=== PATIENT | male | born 1940 | race Caucasian/White ===

== ENCOUNTER 2018-02-19 13:34 | Inpatient (IN) | payer MEDICARE ==
[~2018-02-19] VITALS: Ht 160 cm; Wt 72.6 kg
[~2018-02-19 13:34] MED LIST: GABA300C10 PO; HYDR-3240 PO; LISI1TAB7 PO; NAPR-856 PO
[2018-02-19] MEDS ORDERED: ACETAMINOPHEN 500 MG TABLET PO ONE (15:30)
[2018-02-19] MEDS ORDERED: ONDANSETRON ODT 8 MG PO ONE (15:30)
[2018-02-19 16:21] LABS: BASOPHILS # (AUTO) 0.01 x10^3/uL (0-0.1); BASOPHILS % (AUTO) 0 % (0-1); EOSINOPHILS % (AUTO) 0 % (1-7); LYMPHOCYTES # (AUTO) 1.43 x10^3/uL (1-3.4); LYMPHOCYTES % (AUTO) 12 % (22-44); MD NO; MEAN CORPUSCULAR HEMOGLOBIN 33.3 pg (27.5-34.5); MEAN CORPUSCULAR HGB CONC 33.4 g/dL (33.2-36.2); MEAN CORPUSCULAR VOLUME 99.9 fL (81-97); MEAN PLATELET VOLUME 8.1 fL (7.4-10.4); MONOCYTES # (AUTO) 0.94 x10^3/uL (0.2-0.8); MONOCYTES % (AUTO) 8 % (2-9); NEUTROPHILS # (AUTO) 10.08 x10^3/uL (1.8-6.8); NEUTROPHILS % (AUTO) 81 % (42-75); PLATELET COUNT 225 x10^3/uL (130-400); RED BLOOD COUNT 3.32 x10^6/uL (4.38-5.82); RED CELL DISTRIBUTION WIDTH 15.1 % (9.4-14.8)
[2018-02-19 16:26] LABS: ALANINE AMINOTRANSFERASE 11 U/L (12-78); ALBUMIN 3.3 g/dL (3.4-5.0); CALCIUM 9.2 mg/dL (8.5-10.1)
[2018-02-19 16:28] LABS: BILIRUBIN,TOTAL 0.8 mg/dL (0.2-1.0); CREATININE 1.22 mg/dL (0.7-1.3); TOTAL PROTEIN 7.9 g/dL (6.4-8.2)
[2018-02-19 16:29] LABS: ANION GAP 10 mmol/L (5-15); CHLORIDE 110 mmol/L (98-107)
[2018-02-19 16:31] LABS: ALKALINE PHOSPHATASE 56 U/L (45-117)
[2018-02-19] MEDS: LACTATED RINGERS 1,000 ML IV SCH ×2 (16:39→19:41)
[2018-02-19 18:05] VITALS: BP 114/66
[2018-02-19 18:36] VITALS: BP 106/59
[2018-02-19] MEDS ORDERED: GABAPENTIN 300 MG CAPSULE PO PRN (19:00)
[2018-02-19] MEDS ORDERED: D5%-0.9% NACL 1,000 ML IV SCH (19:00)
[2018-02-19] MEDS ORDERED: hydrALAzine 20 MG/ML, 1ML IVPush PRN (19:00)
[2018-02-19] MEDS ORDERED: ONDANSETRON 2MG/ML, 2ML IVPush PRN (19:00)
[2018-02-19] MEDS ORDERED: ACETAMINOPHEN 325 MG TABLET PO PRN (19:00)
[2018-02-19] MEDS ORDERED: GUAIFENESIN/COD200MG-20MG/10ML LIQUID PO PRN (19:00)
[2018-02-19] MEDS ORDERED: CYCLOBENZAPRINE 10 MG TABLET PO PRN (19:00)
[2018-02-19 20:06] LABS: HCT (SEDRATE) 33.2 % (39.2-51.8)
[2018-02-19] MEDS: ENOXAPARIN 100 MG/ML SQ SCH (20:22)
[2018-02-19] MEDS: morphine SULFATE 10 MG/ML, 1ML IVPush PRN (20:49)
[2018-02-20 01:15] VITALS: BP 116/60
[2018-02-20 03:19] LABS: MICROSCOPIC AUTO
[2018-02-20 03:21] LABS: CULTURE INDICATED? YES
[2018-02-20 05:49] LABS: BASOPHILS # (AUTO) 0.02 x10^3/uL (0-0.1); BASOPHILS % (AUTO) 0 % (0-1); EOSINOPHILS % (AUTO) 0 % (1-7); LYMPHOCYTES # (AUTO) 1.62 x10^3/uL (1-3.4); LYMPHOCYTES % (AUTO) 15 % (22-44); MD NO; MEAN CORPUSCULAR HEMOGLOBIN 33.5 pg (27.5-34.5); MEAN CORPUSCULAR HGB CONC 33.4 g/dL (33.2-36.2); MEAN PLATELET VOLUME 8.5 fL (7.4-10.4); MONOCYTES # (AUTO) 0.96 x10^3/uL (0.2-0.8); MONOCYTES % (AUTO) 9 % (2-9); NEUTROPHILS # (AUTO) 8.27 x10^3/uL (1.8-6.8); NEUTROPHILS % (AUTO) 76 % (42-75); PLATELET COUNT 213 x10^3/uL (130-400); RED BLOOD COUNT 2.99 x10^6/uL (4.38-5.82); RED CELL DISTRIBUTION WIDTH 15.2 % (9.4-14.8)
[2018-02-20 05:54] LABS: CALCIUM 8.9 mg/dL (8.5-10.1); CHLORIDE 109 mmol/L (98-107)
[2018-02-20 05:57] LABS: ANION GAP 7 mmol/L (5-15)
[2018-02-20 06:38] VITALS: BP 123/73
[2018-02-20] MEDS ORDERED: CEFTRIAXONE PMX 1GM/50ML 50 ML IV SCH (07:00)
[2018-02-20] MEDS: ENOXAPARIN 100 MG/ML SQ SCH (08:39)
[2018-02-20] MEDS: HYDROCHLOROTHIAZIDE 25 MG TABLET PO SCH (08:40)
[2018-02-20] MEDS: LISINOPRIL 20 MG TABLET PO SCH (08:40)
[2018-02-20 10:36] LABS: MICROSCOPIC INDICATED
[2018-02-20 10:39] LABS: CULTURE INDICATED? YES
[2018-02-20] MEDS: LACTATED RINGERS 1,000 ML IV SCH ×2 (11:35→20:50)
[2018-02-20 12:57] VITALS: BP 118/68
[2018-02-20] MEDS ORDERED: VANCOMYCIN PER PHARMACY MC PRN (13:00)
[2018-02-20 13:15] LABS: THYROID STIMULATING HORMONE 0.825 mIU/L (0.358-3.740)
[2018-02-20 13:17] LABS: FOLATE LEVEL > 20.0 ng/mL (3.1-17.5)
[2018-02-20] MEDS: morphine SULFATE 10 MG/ML, 1ML IVPush PRN (13:26)
[2018-02-20] MEDS ORDERED: PHARMACOKINETIC MONITORING MC PRN (13:30)
[2018-02-20] MEDS ORDERED: PIPERACILLIN/TAZO/PMX 3.375GM 50 ML IV SCH (14:00)
[2018-02-20] MEDS: VANCOMYCIN 1,800 MG in SODIUM CHLORIDE 0.9% 250 ML IV SCH (14:36)
[2018-02-20 16:37] LABS: INTERNATIONAL NORMALIZED RATIO 1.23 (0.93-1.1)
[2018-02-20 16:56] LABS: PROTHROMBIN TIME 12.9 Seconds (9.6-11.5)
[2018-02-20 18:35] VITALS: BP 119/71
[2018-02-21 00:57] VITALS: BP 113/67
[2018-02-21 05:47] LABS: BASOPHILS # (AUTO) 0.01 x10^3/uL (0-0.1); BASOPHILS % (AUTO) 0 % (0-1); EOSINOPHILS # (AUTO) 0.01 x10^3/uL (0-0.4); EOSINOPHILS % (AUTO) 0 % (1-7); LYMPHOCYTES % (AUTO) 13 % (22-44); MD NO; MEAN CORPUSCULAR HEMOGLOBIN 33.1 pg (27.5-34.5); MEAN CORPUSCULAR HGB CONC 33.4 g/dL (33.2-36.2); MEAN CORPUSCULAR VOLUME 99.4 fL (81-97); MEAN PLATELET VOLUME 7.8 fL (7.4-10.4); MONOCYTES # (AUTO) 0.68 x10^3/uL (0.2-0.8); MONOCYTES % (AUTO) 7 % (2-9); NEUTROPHILS # (AUTO) 7.37 x10^3/uL (1.8-6.8); NEUTROPHILS % (AUTO) 80 % (42-75); PLATELET COUNT 205 x10^3/uL (130-400); RED BLOOD COUNT 2.84 x10^6/uL (4.38-5.82)
[2018-02-21 05:57] LABS: ALBUMIN 2.3 g/dL (3.4-5.0); ANION GAP 9 mmol/L (5-15); CALCIUM 8.5 mg/dL (8.5-10.1); CHLORIDE 108 mmol/L (98-107); CREATININE 0.94 mg/dL (0.7-1.3)
[2018-02-21 06:23] VITALS: BP 114/68
[2018-02-21] MEDS: HYDROCHLOROTHIAZIDE 25 MG TABLET PO SCH (07:40)
[2018-02-21] MEDS: LISINOPRIL 20 MG TABLET PO SCH (08:03)
[2018-02-21] MEDS: LACTATED RINGERS 1,000 ML IV SCH ×2 (08:03→16:42)
[2018-02-21] MEDS: PANTOPRAZOLE 40 MG IV IVPush SCH (12:40)
[2018-02-21] MEDS: CYANOCOBALAMIN 1,000 MCG TABLET PO SCH (12:40)
[2018-02-21 13:13] VITALS: BP 116/67
[2018-02-21] MEDS: VANCOMYCIN 1,800 MG in SODIUM CHLORIDE 0.9% 250 ML IV SCH (14:19)
[2018-02-21] MEDS: morphine SULFATE 10 MG/ML, 1ML IVPush PRN (14:27)
[2018-02-21 18:28] VITALS: BP 118/65
[2018-02-21] MEDS: CEFTAROLINE 600 MG in SODIUM CHLORIDE 0.9% 100 ML IV SCH (18:32)
[2018-02-22 00:08] VITALS: BP 124/68
[2018-02-22] MEDS: LACTATED RINGERS 1,000 ML IV SCH ×3 (04:44→20:00)
[2018-02-22 05:47] LABS: BASOPHILS # (AUTO) 0.01 x10^3/uL (0-0.1); BASOPHILS % (AUTO) 0 % (0-1); EOSINOPHILS # (AUTO) 0.05 x10^3/uL (0-0.4); EOSINOPHILS % (AUTO) 1 % (1-7); LYMPHOCYTES # (AUTO) 1.35 x10^3/uL (1-3.4); LYMPHOCYTES % (AUTO) 15 % (22-44); MD NO; MEAN CORPUSCULAR HEMOGLOBIN 33.6 pg (27.5-34.5); MEAN CORPUSCULAR HGB CONC 33.9 g/dL (33.2-36.2); MEAN CORPUSCULAR VOLUME 99.3 fL (81-97); MEAN PLATELET VOLUME 8.1 fL (7.4-10.4); MONOCYTES # (AUTO) 0.55 x10^3/uL (0.2-0.8); MONOCYTES % (AUTO) 6 % (2-9); NEUTROPHILS # (AUTO) 7.29 x10^3/uL (1.8-6.8); NEUTROPHILS % (AUTO) 79 % (42-75); PLATELET COUNT 198 x10^3/uL (130-400); RED BLOOD COUNT 2.63 x10^6/uL (4.38-5.82); RED CELL DISTRIBUTION WIDTH 14.9 % (9.4-14.8)
[2018-02-22 05:51] LABS: INTERNATIONAL NORMALIZED RATIO 1.24 (0.93-1.1)
[2018-02-22 05:56] LABS: ALBUMIN 1.9 g/dL (3.4-5.0); ANION GAP 7 mmol/L (5-15); CALCIUM 8.3 mg/dL (8.5-10.1); CHLORIDE 109 mmol/L (98-107); CREATININE 0.79 mg/dL (0.7-1.3)
[2018-02-22] MEDS: CEFTAROLINE 600 MG in SODIUM CHLORIDE 0.9% 100 ML IV SCH (06:17)
[2018-02-22 07:07] VITALS: BP 110/68
[2018-02-22] MEDS ORDERED: BACITRACIN OINT 500U/GM, 15 GM ONE (07:09)
[2018-02-22] MEDS ORDERED: THROMBIN 5,000 UNIT VIAL TP ONE (07:09)
[2018-02-22] MEDS ORDERED: BACITRACIN 50,000 UNIT ONE (07:09)
[2018-02-22] MEDS ORDERED: BUPIVACAINE/PF-EPI 0.5% 1:200K ONE (07:09)
[2018-02-22] MEDS ORDERED: MIDAZOLAM 1 MG/ML, 2ML ONE (08:03)
[2018-02-22] MEDS ORDERED: FENTANYL PF 250 MCG/5ML ONE (08:03)
[2018-02-22] MEDS ORDERED: VANCOMYCIN 1,000 MG ONE (08:04)
[2018-02-22] MEDS ORDERED: BUPIVACAINE/PF-EPI 0.25% 1:200K ONE (08:04)
[2018-02-22] MEDS: HYDROCHLOROTHIAZIDE 25 MG TABLET PO SCH (08:30)
[2018-02-22] MEDS: PANTOPRAZOLE 40 MG IV IVPush SCH (08:30)
[2018-02-22] MEDS: CYANOCOBALAMIN 1,000 MCG TABLET PO SCH (08:31)
[2018-02-22] MEDS: LISINOPRIL 20 MG TABLET PO SCH (08:31)
[2018-02-22] MEDS ORDERED: PROPOFOL 10 MG/ML, 20ML ONE (09:25)
[2018-02-22] MEDS ORDERED: SUCCINYLCHOLINE 20 MG/ML, 10ML ONE (09:25)
[2018-02-22] MEDS ORDERED: ONDANSETRON 2MG/ML, 2ML ONE (09:25)
[2018-02-22] MEDS ORDERED: CEFAZOLIN 1,000 MG ONE (09:25)
[2018-02-22] MEDS ORDERED: NEOSTIGMINE 1 MG/ML, 10ML ONE (09:25)
[2018-02-22] MEDS ORDERED: DEXAMETHASONE 4 MG/ML, 1ML ONE (09:25)
[2018-02-22] MEDS ORDERED: GLYCOPYRROLATE 0.2MG/1ML, 5ML ONE (09:25)
[2018-02-22] MEDS ORDERED: hydrALAzine 20 MG/ML, 1ML IV PRN (09:30)
[2018-02-22] MEDS ORDERED: OXYcodone 5 MG/5 ML ORAL.SOL UDC PO PRN (09:30)
[2018-02-22] MEDS ORDERED: ONDANSETRON 2MG/ML, 2ML IV PRN (09:30)
[2018-02-22] MEDS ORDERED: LABETALOL 5MG/ML, 20ML IV PRN (09:30)
[2018-02-22] MEDS ORDERED: HYDROmorphone 1 MG/ML, 1ML IV PRN (09:30)
[2018-02-22] MEDS ORDERED: PROMETHAZINE 12.5 MG SUPP PR PRN (09:30)
[2018-02-22] MEDS ORDERED: FENTANYL PF 100 MCG/2ML IV PRN (09:30)
[2018-02-22] MEDS ORDERED: ONDANSETRON ODT 8 MG PO PRN (09:30)
[2018-02-22] MEDS ORDERED: OXYcodone 5 MG/5 ML ORAL.SOL UDC ONE (09:59)
[2018-02-22] MEDS ORDERED: FENTANYL PF 100 MCG/2ML ONE (09:59)
[2018-02-22] MEDS ORDERED: MEPERIDINE/PF 50 MG/ML IM PRN (11:30)
[2018-02-22] MEDS: CIPROFLOXACIN 750 MG TABLET PO SCH ×2 (12:30→21:00)
[2018-02-22] MEDS ORDERED: CEFAZOLIN 1,000 MG IM SCH (12:30)
[2018-02-22] MEDS ORDERED: CIPROFLOXACIN 500 MG TABLET ONE (13:03)
[2018-02-22 14:40] VITALS: BP 113/68
[2018-02-22] MEDS: NS + 20MEQ KCL 1,000 ML IV SCH (16:45)
[2018-02-22] MEDS: CEFAZOLIN 2,000 MG in SODIUM CHLORIDE 0.9% 50 ML IVPB SCH (16:45)
[2018-02-22] MEDS: OXYcodone/APAP 10/325MG TABLET PO PRN (16:51)
[2018-02-22 19:46] VITALS: BP 101/61
[2018-02-23 00:18] VITALS: BP 115/74
[2018-02-23] MEDS: CEFAZOLIN 2,000 MG in SODIUM CHLORIDE 0.9% 50 ML IVPB SCH ×3 (00:50→16:45)
[2018-02-23] MEDS: LACTATED RINGERS 1,000 ML IV SCH ×2 (03:37→15:18)
[2018-02-23 04:22] VITALS: BP 100/60
[2018-02-23] MEDS: NS + 20MEQ KCL 1,000 ML IV SCH ×2 (05:02→21:59)
[2018-02-23 05:09] LABS: BASOPHILS # (AUTO) 0.02 x10^3/uL (0-0.1); BASOPHILS % (AUTO) 0 % (0-1); EOSINOPHILS # (AUTO) 0.12 x10^3/uL (0-0.4); EOSINOPHILS % (AUTO) 1 % (1-7); LYMPHOCYTES # (AUTO) 1.11 x10^3/uL (1-3.4); LYMPHOCYTES % (AUTO) 13 % (22-44); MD NO; MEAN CORPUSCULAR HEMOGLOBIN 33.3 pg (27.5-34.5); MEAN CORPUSCULAR HGB CONC 33.5 g/dL (33.2-36.2); MEAN CORPUSCULAR VOLUME 99.4 fL (81-97); MEAN PLATELET VOLUME 7.9 fL (7.4-10.4); MONOCYTES # (AUTO) 0.45 x10^3/uL (0.2-0.8); MONOCYTES % (AUTO) 5 % (2-9); NEUTROPHILS # (AUTO) 7.07 x10^3/uL (1.8-6.8); NEUTROPHILS % (AUTO) 81 % (42-75); PLATELET COUNT 196 x10^3/uL (130-400); RED BLOOD COUNT 2.57 x10^6/uL (4.38-5.82); RED CELL DISTRIBUTION WIDTH 14.8 % (9.4-14.8)
[2018-02-23 05:19] LABS: ALBUMIN 1.9 g/dL (3.4-5.0); ANION GAP 8 mmol/L (5-15); CHLORIDE 106 mmol/L (98-107); CREATININE 0.77 mg/dL (0.7-1.3)
[2018-02-23 06:24] VITALS: BP 105/56
[2018-02-23] MEDS: OXYcodone/APAP 10/325MG TABLET PO PRN (07:54)
[2018-02-23] MEDS: HYDROCHLOROTHIAZIDE 25 MG TABLET PO SCH (09:00)
[2018-02-23] MEDS: CYANOCOBALAMIN 1,000 MCG TABLET PO SCH (09:07)
[2018-02-23] MEDS: LISINOPRIL 20 MG TABLET PO SCH (09:07)
[2018-02-23] MEDS: PANTOPRAZOLE 40 MG IV IVPush SCH (09:07)
[2018-02-23] MEDS: CIPROFLOXACIN 750 MG TABLET PO SCH ×2 (09:07→21:00)
[2018-02-23 11:55] VITALS: BP 94/59
[2018-02-23] MEDS ORDERED: OMNIPAQUE 350 MG/ML, 100ML BOTTLE ONE (11:57)
[2018-02-23 12:38] VITALS: BP 94/59
[2018-02-23] MEDS ORDERED: LIDOCAINE-MPF 1%, 5ML ONE (14:23)
[2018-02-23] MEDS ORDERED: NALOXONE 1 MG/ML, 2ML ONE (14:43)
[2018-02-23] MEDS ORDERED: FENTANYL PF 100 MCG/2ML ONE (14:43)
[2018-02-23 18:31] VITALS: BP 106/66
[2018-02-24] MEDS: CEFAZOLIN 2,000 MG in SODIUM CHLORIDE 0.9% 50 ML IVPB SCH ×3 (00:27→16:38)
[2018-02-24] MEDS: LACTATED RINGERS 1,000 ML IV SCH (00:30)
[2018-02-24 01:56] VITALS: BP 122/67
[2018-02-24 05:44] LABS: BASOPHILS # (AUTO) 0.02 x10^3/uL (0-0.1); BASOPHILS % (AUTO) 0 % (0-1); EOSINOPHILS # (AUTO) 0.14 x10^3/uL (0-0.4); EOSINOPHILS % (AUTO) 2 % (1-7); LYMPHOCYTES # (AUTO) 1.09 x10^3/uL (1-3.4); LYMPHOCYTES % (AUTO) 15 % (22-44); MD NO; MEAN CORPUSCULAR HEMOGLOBIN 33.7 pg (27.5-34.5); MEAN CORPUSCULAR HGB CONC 34.1 g/dL (33.2-36.2); MEAN CORPUSCULAR VOLUME 98.8 fL (81-97); MEAN PLATELET VOLUME 7.9 fL (7.4-10.4); MONOCYTES % (AUTO) 6 % (2-9); NEUTROPHILS # (AUTO) 5.59 x10^3/uL (1.8-6.8); NEUTROPHILS % (AUTO) 77 % (42-75); PLATELET COUNT 213 x10^3/uL (130-400); RED BLOOD COUNT 2.45 x10^6/uL (4.38-5.82); RED CELL DISTRIBUTION WIDTH 14.8 % (9.4-14.8)
[2018-02-24 05:54] LABS: CHLORIDE 108 mmol/L (98-107)
[2018-02-24 06:01] LABS: ALANINE AMINOTRANSFERASE 31 U/L (12-78); ALBUMIN 1.9 g/dL (3.4-5.0); ALKALINE PHOSPHATASE 83 U/L (45-117); ANION GAP 8 mmol/L (5-15); BILIRUBIN,TOTAL 0.4 mg/dL (0.2-1.0); CALCIUM 8.3 mg/dL (8.5-10.1); CREATININE 0.78 mg/dL (0.7-1.3); TOTAL PROTEIN 5.8 g/dL (6.4-8.2)
[2018-02-24 06:33] VITALS: BP 149/70
[2018-02-24] MEDS ORDERED: CYANOCOBALAMIN 1,000 MCG/ML, 1ML IM ONE (07:30)
[2018-02-24] MEDS: FOLIC ACID 1 MG TABLET PO SCH (08:17)
[2018-02-24] MEDS: THIAMINE 100MG TABLET PO SCH (08:17)
[2018-02-24] MEDS: CIPROFLOXACIN 750 MG TABLET PO SCH ×2 (08:18→19:49)
[2018-02-24] MEDS: LISINOPRIL 20 MG TABLET PO SCH (08:18)
[2018-02-24] MEDS: PANTOPRAZOLE 40 MG IV IVPush SCH (08:19)
[2018-02-24] MEDS: HYDROCHLOROTHIAZIDE 25 MG TABLET PO SCH (09:00)
[2018-02-24] MEDS: CYANOCOBALAMIN 1,000 MCG TABLET PO SCH (09:00)
[2018-02-24 12:55] VITALS: BP 125/72
[2018-02-24] MEDS: DOCUSATE 100 MG CAPSULE PO PRN (19:50)
[2018-02-24] MEDS: OXYcodone/APAP 10/325MG TABLET PO PRN (19:56)
[2018-02-24 20:56] VITALS: BP 129/71
[2018-02-25] MEDS: CEFAZOLIN 2,000 MG in SODIUM CHLORIDE 0.9% 50 ML IVPB SCH ×3 (00:29→16:57)
[2018-02-25] MEDS ORDERED: CEFAZOLIN 2,000 MG in DEXTROSE 5% 50 ML IVPB SCH (00:30)
[2018-02-25 00:54] VITALS: BP 128/71
[2018-02-25 03:39] VITALS: BP 128/72
[2018-02-25 06:57] VITALS: BP 116/64
[2018-02-25] MEDS ORDERED: SENNA/DOCUSATE TABLET PO PRN (07:30)
[2018-02-25] MEDS ORDERED: MAGNESIUM HYDROXIDE 8%, 30ML UDC ONE (07:32)
[2018-02-25] MEDS: PANTOPROZOLE 40MG TABLET PO SCH (07:33)
[2018-02-25] MEDS: HYDROCHLOROTHIAZIDE 25 MG TABLET PO SCH (07:33)
[2018-02-25] MEDS: CIPROFLOXACIN 750 MG TABLET PO SCH (07:34)
[2018-02-25] MEDS: CYANOCOBALAMIN 1,000 MCG TABLET PO SCH (07:34)
[2018-02-25] MEDS: THIAMINE 100MG TABLET PO SCH (07:34)
[2018-02-25] MEDS: LISINOPRIL 20 MG TABLET PO SCH (07:35)
[2018-02-25] MEDS: FOLIC ACID 1 MG TABLET PO SCH (07:36)
[2018-02-25] MEDS ORDERED: MAGNESIUM HYDROXIDE 8%, 30ML UDC PO PRN (07:38)
[2018-02-25 08:05] LABS: BASOPHILS % (AUTO) 0 % (0-1); EOSINOPHILS # (AUTO) 0.12 x10^3/uL (0-0.4); EOSINOPHILS % (AUTO) 2 % (1-7); LYMPHOCYTES # (AUTO) 1.09 x10^3/uL (1-3.4); LYMPHOCYTES % (AUTO) 17 % (22-44); MD NO; MEAN CORPUSCULAR HEMOGLOBIN 32.4 pg (27.5-34.5); MEAN CORPUSCULAR HGB CONC 32.8 g/dL (33.2-36.2); MEAN CORPUSCULAR VOLUME 98.7 fL (81-97); MEAN PLATELET VOLUME 7.2 fL (7.4-10.4); MONOCYTES # (AUTO) 0.39 x10^3/uL (0.2-0.8); MONOCYTES % (AUTO) 6 % (2-9); NEUTROPHILS # (AUTO) 4.82 x10^3/uL (1.8-6.8); NEUTROPHILS % (AUTO) 75 % (42-75); PLATELET COUNT 285 x10^3/uL (130-400); RED BLOOD COUNT 2.76 x10^6/uL (4.38-5.82); RED CELL DISTRIBUTION WIDTH 15.2 % (9.4-14.8)
[2018-02-25 08:07] LABS: ALANINE AMINOTRANSFERASE 24 U/L (12-78); ALBUMIN 2.2 g/dL (3.4-5.0); ANION GAP 11 mmol/L (5-15); CALCIUM 8.9 mg/dL (8.5-10.1); CHLORIDE 107 mmol/L (98-107); CREATININE 0.74 mg/dL (0.7-1.3)
[2018-02-25 08:10] LABS: ALKALINE PHOSPHATASE 88 U/L (45-117); BILIRUBIN,TOTAL 0.5 mg/dL (0.2-1.0); TOTAL PROTEIN 6.3 g/dL (6.4-8.2)
[2018-02-25] MEDS ORDERED: MAGNESIUM HYDROXIDE 8%, 30ML UDC PO SCH (09:00)
[2018-02-25] MEDS: SULFAMETH./TRIMETHOPRIM DS 800MG/160MG TABLET PO SCH ×2 (12:06→20:12)
[2018-02-25 14:08] VITALS: BP 115/71
[2018-02-25 19:50] VITALS: BP 141/74
[2018-02-25] MEDS: DOCUSATE 100 MG CAPSULE PO PRN (20:12)
[2018-02-26] MEDS: CEFAZOLIN 2,000 MG in SODIUM CHLORIDE 0.9% 50 ML IVPB SCH ×3 (00:32→17:50)
[2018-02-26 02:07] VITALS: BP 137/78
[2018-02-26 05:35] LABS: BASOPHILS # (AUTO) 0.01 x10^3/uL (0-0.1); BASOPHILS % (AUTO) 0 % (0-1); EOSINOPHILS # (AUTO) 0.12 x10^3/uL (0-0.4); EOSINOPHILS % (AUTO) 2 % (1-7); LYMPHOCYTES # (AUTO) 1.53 x10^3/uL (1-3.4); LYMPHOCYTES % (AUTO) 24 % (22-44); MD NO; MEAN CORPUSCULAR HEMOGLOBIN 33.5 pg (27.5-34.5); MEAN CORPUSCULAR HGB CONC 34.2 g/dL (33.2-36.2); MEAN CORPUSCULAR VOLUME 98.1 fL (81-97); MEAN PLATELET VOLUME 7.1 fL (7.4-10.4); MONOCYTES # (AUTO) 0.48 x10^3/uL (0.2-0.8); MONOCYTES % (AUTO) 8 % (2-9); NEUTROPHILS # (AUTO) 4.29 x10^3/uL (1.8-6.8); NEUTROPHILS % (AUTO) 67 % (42-75); PLATELET COUNT 348 x10^3/uL (130-400); RED BLOOD COUNT 2.76 x10^6/uL (4.38-5.82); RED CELL DISTRIBUTION WIDTH 15.2 % (9.4-14.8)
[2018-02-26 05:41] LABS: ANION GAP 11 mmol/L (5-15); CALCIUM 8.7 mg/dL (8.5-10.1); CHLORIDE 104 mmol/L (98-107)
[2018-02-26 05:44] LABS: ALANINE AMINOTRANSFERASE 21 U/L (12-78); ALKALINE PHOSPHATASE 89 U/L (45-117); BILIRUBIN,TOTAL 0.4 mg/dL (0.2-1.0); CREATININE 0.78 mg/dL (0.7-1.3); TOTAL PROTEIN 6.5 g/dL (6.4-8.2)
[2018-02-26 07:47] VITALS: BP 144/76
[2018-02-26] MEDS: THIAMINE 100MG TABLET PO SCH (07:51)
[2018-02-26] MEDS: SULFAMETH./TRIMETHOPRIM DS 800MG/160MG TABLET PO SCH ×2 (07:51→21:10)
[2018-02-26] MEDS: LISINOPRIL 20 MG TABLET PO SCH (07:51)
[2018-02-26] MEDS: PANTOPROZOLE 40MG TABLET PO SCH (07:51)
[2018-02-26 07:52] VITALS: BP 126/81
[2018-02-26] MEDS: HYDROCHLOROTHIAZIDE 25 MG TABLET PO SCH (07:52)
[2018-02-26] MEDS: CYANOCOBALAMIN 1,000 MCG TABLET PO SCH (07:52)
[2018-02-26] MEDS: FOLIC ACID 1 MG TABLET PO SCH (07:52)
[2018-02-26] MEDS ORDERED: BISACODYL 10 MG SUPP PR PRN (08:00)
[2018-02-26] MEDS: OXYcodone/APAP 10/325MG TABLET PO PRN ×2 (11:54→20:21)
[2018-02-26] MEDS: CYCLOBENZAPRINE 10 MG TABLET PO PRN ×2 (12:39→21:10)
[2018-02-26 12:40] VITALS: BP 114/54
[2018-02-26] MEDS ORDERED: HEPARIN 25,000 UNITS/500ML PMX 500 ML IV PRN (13:00)
[2018-02-26] MEDS ORDERED: HEPARIN 5,000 UNITS/ML, 1ML IV ONE (13:30)
[2018-02-26] MEDS: HEPARIN 25,000 UNITS/500ML PMX 500 ML IV PRN (14:46)
[2018-02-26 19:37] VITALS: BP 126/68
[2018-02-26] MEDS: HEPARIN 5,000 UNITS/ML, 1ML IV PRN (21:51)
[2018-02-26 22:53] VITALS: BP 158/74
[2018-02-27] MEDS: CEFAZOLIN 2,000 MG in SODIUM CHLORIDE 0.9% 50 ML IVPB SCH ×2 (01:11→08:24)
[2018-02-27 02:15] VITALS: BP 114/69
[2018-02-27 04:49] LABS: BASOPHILS # (AUTO) 0.02 x10^3/uL (0-0.1); BASOPHILS % (AUTO) 0 % (0-1); EOSINOPHILS # (AUTO) 0.12 x10^3/uL (0-0.4); EOSINOPHILS % (AUTO) 2 % (1-7); LYMPHOCYTES # (AUTO) 1.63 x10^3/uL (1-3.4); LYMPHOCYTES % (AUTO) 24 % (22-44); MD NO; MEAN CORPUSCULAR HEMOGLOBIN 32.4 pg (27.5-34.5); MEAN CORPUSCULAR HGB CONC 32.9 g/dL (33.2-36.2); MEAN CORPUSCULAR VOLUME 98.6 fL (81-97); MEAN PLATELET VOLUME 6.8 fL (7.4-10.4); MONOCYTES # (AUTO) 0.49 x10^3/uL (0.2-0.8); MONOCYTES % (AUTO) 7 % (2-9); NEUTROPHILS % (AUTO) 67 % (42-75); PLATELET COUNT 401 x10^3/uL (130-400); RED BLOOD COUNT 2.87 x10^6/uL (4.38-5.82); RED CELL DISTRIBUTION WIDTH 15.6 % (9.4-14.8)
[2018-02-27 05:00] LABS: ALBUMIN 2.2 g/dL (3.4-5.0); ANION GAP 7 mmol/L (5-15); CALCIUM 7.9 mg/dL (8.5-10.1); CHLORIDE 104 mmol/L (98-107); CREATININE 0.86 mg/dL (0.7-1.3)
[2018-02-27 05:04] LABS: ALANINE AMINOTRANSFERASE 20 U/L (12-78); ALKALINE PHOSPHATASE 81 U/L (45-117); BILIRUBIN,TOTAL 0.2 mg/dL (0.2-1.0); TOTAL PROTEIN 6.4 g/dL (6.4-8.2)
[2018-02-27] MEDS: HEPARIN 5,000 UNITS/ML, 1ML IV PRN ×2 (05:22→12:30)
[2018-02-27 06:49] VITALS: BP 115/65
[2018-02-27] MEDS: THIAMINE 100MG TABLET PO SCH (08:24)
[2018-02-27] MEDS: PANTOPROZOLE 40MG TABLET PO SCH (08:24)
[2018-02-27] MEDS: SULFAMETH./TRIMETHOPRIM DS 800MG/160MG TABLET PO SCH (08:24)
[2018-02-27] MEDS: HYDROCHLOROTHIAZIDE 25 MG TABLET PO SCH (08:24)
[2018-02-27] MEDS: CYANOCOBALAMIN 1,000 MCG TABLET PO SCH (08:25)
[2018-02-27] MEDS: FOLIC ACID 1 MG TABLET PO SCH (08:25)
[2018-02-27] MEDS: LISINOPRIL 20 MG TABLET PO SCH (08:25)
[2018-02-27 09:52] LABS: INTERNATIONAL NORMALIZED RATIO 1.25 (0.93-1.1); PROTHROMBIN TIME 13.1 Seconds (9.6-11.5)
[2018-02-27] MEDS ORDERED: THIA100T67 PO (11:12)
[2018-02-27] MEDS ORDERED: FOLI-17 PO (11:12)
[2018-02-27] MEDS ORDERED: CYAN10005 PO (11:12)
[2018-02-27] MEDS ORDERED: PANT40TA5 PO (11:12)
[2018-02-27] MEDS ORDERED: Warfarin Low Dose Protocol XX (11:12)
[2018-02-27] MEDS ORDERED: SULF-169 PO (11:14)
[2018-02-27 11:55] VITALS: BP 115/68
[2018-02-27] MEDS ORDERED: LIDOCAINE-MPF 1%, 5ML ONE (12:26)
[2018-02-27] MEDS: CYCLOBENZAPRINE 10 MG TABLET PO PRN (13:36)
[2018-02-27] MEDS: DOCUSATE 100 MG CAPSULE PO PRN (13:36)
[2018-02-27] MEDS: OXYcodone/APAP 10/325MG TABLET PO PRN (13:37)
[2018-02-27] MEDS: HEPARIN 25,000 UNITS/500ML PMX 500 ML IV PRN (15:31)
[2018-02-27 17:14] VITALS: BP 117/72
[2018-02-27] MEDS ORDERED: WARFARIN 5 MG TABLET PO-COUM ONE (18:00)
== END 2018-02-27 18:17 | DRG 853 ==
LOC: OR 13:34 → 4NOR 17:43
PROVIDERS: ADMIT Internal Medicine; ATTEND Internal Medicine
PROC: 0T9B70Z Drainage of Bladder with Drainage Device, Via Natural or Artificial Opening (ICD-10-PCS; 2018-02-20)
PROC: 009U0ZZ Drainage of Spinal Canal, Open Approach (ICD-10-PCS; 2018-02-22)
PROC: 01NB0ZZ Release Lumbar Nerve, Open Approach (ICD-10-PCS; principal; 2018-02-22 08:00)
PROC: 06H03DZ Insertion of Intraluminal Device into Inferior Vena Cava, Percutaneous Approach (ICD-10-PCS; 2018-02-23)
PROC: 02HV33Z Insertion of Infusion Device into Superior Vena Cava, Percutaneous Approach (ICD-10-PCS; 2018-02-27)
PROC: B5181ZA Fluoroscopy of Superior Vena Cava using Low Osmolar Contrast, Guidance (ICD-10-PCS; 2018-02-27)
PROC: B548ZZA Ultrasonography of Superior Vena Cava, Guidance (ICD-10-PCS; 2018-02-27)
DX: A41.01 Sepsis due to Methicillin susceptible Staphylococcus aureus (principal); G06.1 Intraspinal abscess and granuloma; E43 Unspecified severe protein-calorie malnutrition; I26.99 Other pulmonary embolism without acute cor pulmonale; F05 Delirium due to known physiological condition; G93.40 Encephalopathy, unspecified; M46.27 Osteomyelitis of vertebra, lumbosacral region; N39.0 Urinary tract infection, site not specified; Z88.8 Allergy status to other drugs, medicaments and biological substances; B96.1 Klebsiella pneumoniae [K. pneumoniae] as the cause of diseases classified elsewhere; D75.89 Other specified diseases of blood and blood-forming organs; Z68.28 Body mass index [BMI] 28.0-28.9, adult; E53.8 Deficiency of other specified B group vitamins; G89.29 Other chronic pain; I10 Essential (primary) hypertension; I27.20 Pulmonary hypertension, unspecified; K21.9 Gastro-esophageal reflux disease without esophagitis; M06.9 Rheumatoid arthritis, unspecified; M19.90 Unspecified osteoarthritis, unspecified site; M41.9 Scoliosis, unspecified; M46.49 Discitis, unspecified, multiple sites in spine; M47.816 Spondylosis without myelopathy or radiculopathy, lumbar region; N40.1 Benign prostatic hyperplasia with lower urinary tract symptoms; R33.8 Other retention of urine; Z53.9 Procedure and treatment not carried out, unspecified reason; Z85.828 Personal history of other malignant neoplasm of skin; Z86.73 Personal history of transient ischemic attack (TIA), and cerebral infarction without residual deficits; Z87.891 Personal history of nicotine dependence; Z96.653 Presence of artificial knee joint, bilateral; Z90.49 Acquired absence of other specified parts of digestive tract
CPT/HCPCS: 36415; 36569; 37191; 70450; 71045; 71275; 72100; 72158; 76937; 77001; 80048; 80053; 81001; 82040; 82140; 82607; 82746; 83735; 84100; 84443; 85025; 85520; 85610; 85651; 85730; 86140; 87040; 87070; 87075; 87077; 87086; 87147; 87176; 87186; 87205; 93005; 93306; C1880; G0378; J0690; J0696; J0712; J1100; J1644; J1650; J2250; J2405; J2704; J2710; J3010; J3370; J3480; J3490; J7042; Q9967; C1751; C1769; C9113; J0330; J2270; J2310; J3420; J7050; J7120